=== PATIENT | male | born 1990 | race Caucasian/White ===

== ENCOUNTER 2021-04-19 22:30 | Emergency (ER) | payer OTHER ==
[~2021-04-19] VITALS: Ht 182.9 cm; Wt 93.2 kg
[2021-04-19 22:30] VITALS: BP 132/58
[2021-04-19] MEDS ORDERED: CEPHALEXIN 250 MG CAPSULE PO ONE (23:00)
[2021-04-19] MEDS ORDERED: diphenhydrAMINE HCL 25 MG CAPSULE PO ONE (23:00)
[2021-04-19] MEDS ORDERED: CEPH500C PO (23:04)
--- NOTE | 2021-04-19 23:05 | PHYS DOC ---
Adult General Chief Complaint Chief Complaint: INSECT BITE HPI HPI Patient is an otherwise healthy 30-year-old male who presents with a insect bite that he noticed started 3 days ago on the back of his left thigh. Denies any recent traumas, illnesses, fevers, chest pain, shortness of breath, abdominal pa in, nausea, vomiting, diarrhea. States he has put some lotion on it due to the itching. Review of Systems Review of Systems Review of systems otherwise unremarkable except noted by HPI Physical Exam Physical Exam Constitutional: Well developed, well nourished, no acute distress, non-toxic a ppearance. [] Cardiovascular:Heart rate regular rhythm, no murmur [] Lungs & Thorax: Bilateral breath sounds clear to auscultation [] Extremities: Probable insect bite on back of left thigh with warmth and erythema radiating out about 4 cm Neurologic: Alert and oriented X 3, no focal deficits noted. [] Psychologic: Affect normal, judgement normal, mood normal. [] EKG EKG [] Radiology/Procedures Radiology/Procedures [] Heart Score C/O Chest Pain: No Risk Factors: Risk Factors: DM, Current or recent (<one month) smoker, HTN, HLP, family history of CAD, obesity. Risk Scores: Risk Factors: DM, Current or recent (<one month) smoker, HTN, HLP, family history of CAD, obesity. Course & Med Decision Making Course & Med Decision Making Patient is a 30-year-old male who presents with insect bite Vital signs not concerning. Physical exam noted above. Patient started on Keflex for cellulitis. Given diphenhydramine for itching. Discussed all findings with patient. Advised on symptom management at home. Advised on antibiotic use. Advised to follow-up with primary care physician on Thursday to update on ED visit. Gave return precautions to the ED. Patient grateful, verbalized understanding and agreed with plan of discharge. [] Dragon Disclaimer Dragon Disclaimer This electronic medical record was generated, in whole or in part, using a voice recognition dictation system. Departure Departure: Impression: Primary Impression: Insect bite Additional Impression: Cellulitis Disposition: HOME / SELF CARE / HOMELESS Condition: GOOD Referrals: PCP,NO (PCP) AJIT BECERRA MD Patient Instructions: Cellulitis, Insect Bite Additional Instructions: Thank you for coming into the emergency department and allowing us to take care of you. Please read all the attached information very carefully. You can begin to use Tylenol, ibuprofen and Benadryl as needed for symptom control. Please take all your antibiotics as prescribed. Please call your primary care physician first thing Thursday morning to set up an ER follow-up visit for reevaluation. Please come back to the ED with new or concerning symptoms as discussed. Scripts Cephalexin (CEPHALEXIN) 500 Mg Capsule 1 CAP PO TID for cellulitis for 5 Days, #15 CAP Prov: YORDY PRIEST MD 04/19/21 Problem Qualifiers YORDY PRIEST MD Apr 19, 2021 23:05
== END 2021-04-19 23:15 | disposition home or self-care (01) ==
LOC: ER 22:30
DX: S70.362A Insect bite (nonvenomous), left thigh, initial encounter (principal); L03.116 Cellulitis of left lower limb; W57.XXXA Bitten or stung by nonvenomous insect and other nonvenomous arthropods, initial encounter; Y93.89 Activity, other specified; Y92.89 Other specified places as the place of occurrence of the external cause; Y99.8 Other external cause status
CPT/HCPCS: 99283; Q0163